=== PATIENT | female | born 1975 | race Caucasian/White ===

== ENCOUNTER → 2018-08-22 | Outpatient (CLI) | payer BC ==
--- NOTE | 2018-08-22 11:47 | US ---
EXAMINATION TYPE: US thyroid st tissue head/neck DATE OF EXAM: 08/22/2018 COMPARISON: NONE CLINICAL HISTORY: R59.0 cervical lymphadenopathy. Assess left upper neck palpables and thyroid tissue as patient stated has difficulty swallowing with turned head. Patient stated had viral infection 2 t o 3 weeks ago. GLAND SIZE: Right Lobe:5.6 x 2.0 x 1.6cm Overall Parenchyma: homogenous Left Lobe: 4.5 x 1.8 x 1.6 cm Overall Parenchyma: homogeneous Isthmus Thickness: 0.3 cm NODULES RIGHT: # of nodules measured on right: 0 LEFT: # of nodules measured on left: 0 ISTHMUS: # of nodules measured in the isthmus: 0 Bilateral neck scanned: Right upper neck node seen = 0.8 x 0.6x 0.4cm. Multiple left neck nodes are s een: at upper lateral palpables and inferior to mandible 3 nodes are seen with largest = 2.0 x 1.4 x 0.6cm. Multiple left lateral neck nodes are also seen on images #[id number] through [id number]. IMPRESSION: 1. No suspicious thyroid nodules. 2. Scattered lymph nodes within the left neck, some of which appear enlarged. Consider soft tissue ne ck CT for additional evaluation.
== END | disposition home or self-care (01) ==
LOC: RADUSWWP 10:50
PROVIDERS: ATTEND Family Medicine
DX: R59.0 Localized enlarged lymph nodes (principal)
CPT/HCPCS: 76536

== ENCOUNTER → 2018-09-16 | Outpatient (CLI) | payer BC ==
--- NOTE | 2018-09-18 09:42 | MM ---
Reason for exam: screening (asymptomatic). History: Patient is nulliparous. Physical Findings: A clinical breast exam by your physician is recommended on an annual basis and results should be correlated with mammographic findings. MG Screening Mammo w CAD Bilateral CC and MLO view(s) were taken. No prior studies available for comparison. There are scattered fibroglandular densities. Vague isodense nodular asymmetry subareolar right MLO view has no clear correlate on the CC view. 6 month follow up recommended. Otherwise, no discrete abnormality. ASSESSMENT: Probably benign, BI-RAD 3 RECOMMENDATION: Follow-up diagnostic mammogram of the right breast in 6 months. (plus a lateral view)
== END | disposition home or self-care (01) ==
LOC: RADMAMWWP 13:53
PROVIDERS: ATTEND Family Medicine
DX: Z12.31 Encounter for screening mammogram for malignant neoplasm of breast (principal)
CPT/HCPCS: 77067

== ENCOUNTER → 2018-09-16 | Outpatient (CLI) | payer BC ==
--- NOTE | 2018-09-17 03:55 | CT ---
EXAMINATION TYPE: CT soft tissue neck w con DATE OF EXAM: 09/16/2018 COMPARISON: None HISTORY: 42-year-old female localized enlarged lymph nodes TECHNIQUE: Contiguous axial scanning of the soft tissues of the neck performed with IV Contrast, sheela ent injected with 100 mL of Isovue 300. Coronal/sagittal reconstructions performed. CT DLP: 625 mGycm Automated exposure control for dose reduction was used. FINDINGS: Visualized paranasal sinuses and mastoid air cells appear clear. Not much of the orbits or intracrani al space is included in the [id number]. The nasopharynx appears clear. The soft palate is elevated causing soft tissue crowding at the naso-o ropharyngeal junction. There is focal nodularity at the left vallecular space, axial image 22 probably reflecting lingual to nsillar hypertrophy. The epiglottis and prevertebral soft tissues appear satisfactory. There is asymmetric soft tissue effacement of the left piriform sinus, axial images 26 and 27 which c ould be due to mucosal redundancy or mucosal space lesion. Otherwise, the glottic and subglottic structures as well as the tracheal column and visualized upper lungs appear clear. The thyroid gland, submandibular, and parotid glands appear satisfactory. Prominent but not enlarged 5 mm left parotid space lymph nodes. Otherwise, no cervical lymphadenopath y is seen. Scattered small cervical lymph nodes are present on both sides. Bones: Reversal of the normal cervical lordosis both preserved alignment. IMPRESSION: 1. SOME FOCAL NODULARITY IN THE LEFT VALLECULAR SPACE PROBABLY REPRESENTS LINGUAL TONSILLAR HYPERTROP HY. THIS CAN BE CONFIRMED WITH DIRECT VISUALIZATION. 2. ASYMMETRIC SOFT TISSUE EFFACEMENT OF THE LEFT PIRIFORM SINUS COULD REPRESENT MUCOSAL REDUNDANCY OR UNDERLYING MUCOSAL SPACE LESION. AGAIN, DIRECT VISUALIZATION RECOMMENDED. 3. A COUPLE BORDERLINE SIZED LEFT-SIDED PAROTID SPACE LYMPH NODES MEASURING UP TO 5 MM. ADDITIONAL NO NENLARGED LYMPH NODES ARE PRESENT ON BOTH SIDES OF THE NECK. NO CERVICAL LYMPHADENOPATHY BY CT SIZE C RITERIA. IF THERE IS PERSISTENCE OF A PALPABLE ABNORMALITY, THE EXAM CAN BE REVIEWED WITH DIRECTED AT TENTION.
== END ==
LOC: RADCTMAIN 16:23
PROVIDERS: ATTEND Family Medicine
DX: J35.1 Hypertrophy of tonsils (principal)
CPT/HCPCS: 70491; Q9967

== ENCOUNTER → 2019-07-29 | Outpatient (CLI) | payer BC ==
--- NOTE | 2019-07-30 09:25 | US ---
EXAMINATION TYPE: US transvaginal DATE OF EXAM: 07/29/2019 COMPARISON: NONE CLINICAL HISTORY: N92.1 Excessive and frequent menstruation with irr. Irregular cycles, heavy bleedin g TECHNIQUE: . Transvaginal sonographic images of the pelvis were acquired. Date of LMP: May 2019 on and off until June 2019 EXAM MEASUREMENTS: Uterus: 8.7 x 6.6 x 6.9 cm Endometrial Stripe: 1.0 cm Right Ovary: 2.0 x 2.0 x 1.4 cm Left Ovary: 3.1 x 2.4 x 1.8 cm 1. Uterus: Anteverted Heterogeneous. Nabothian cysts visualized. Multiple probable fibroids visual ized, largest measuring 4.9 x 4.8 x 4.8 cm 2. Endometrium: wnl 3. Right Ovary: wnl 4. Left Ovary: wnl 5. Bilateral Adnexa: wnl 6. Posterior cul-de-sac: wnl IMPRESSION: 1. Uterine fibroids
== END | disposition home or self-care (01) ==
LOC: RADUSWWP 16:01
PROVIDERS: ATTEND Family Medicine
DX: D25.9 Leiomyoma of uterus, unspecified (principal)
CPT/HCPCS: 76830